=== PATIENT | female | born 1970 ===

== ENCOUNTER 2023-10-11 11:15 | Inpatient (IN) | payer OTHER ==
[~2023-10-11] VITALS: Ht 157.5 cm; Wt 58.5 kg
[2023-10-11] MEDS ORDERED: ZOLOFT100 MG PO (13:34)
[2023-10-11] MEDS ORDERED: WELLBUTRIN XL300 MG PO (13:36)
[2023-10-11] MEDS ORDERED: AMBIEN10 MG PO (13:38)
[2023-10-11] MEDS ORDERED: CLONAZEPAM0.5 MG PO (13:38)
[2023-10-11] MEDS ORDERED: BIOTIN5000 MCG PO (13:40)
[2023-10-11] MEDS ORDERED: VITAMIN D-40010 MCG PO (13:40)
[2023-10-11] MEDS ORDERED: CALCIUM500 M1 (13:40)
[2023-10-14] MEDS ORDERED: CEFOXITIN SODIUM 2,000 MG VIAL IV ONE ×3 (11:55→16:30)
[2023-10-14] MEDS ORDERED: THROMBIN,HU/FIBRINOGEN/CALCIUM 10 ML SYRINGE TOP ONE ×2 (14:17→16:30)
[2023-10-14] MEDS ORDERED: METRONIDAZOLE/SODIUM CHLORIDE 500 MG/100 ML PIGGYBACK IV ONE ×2 (14:47→16:30)
[2023-10-14] MEDS ORDERED: ONDANSETRON HCL 2 MG/ML VIAL IV PRN (15:30)
[2023-10-14] MEDS ORDERED: RINGERS SOLUTION,LACTATED 1,000 ML IV SCH (15:30)
[2023-10-14] MEDS ORDERED: MORPHINE SULFATE 4 MG/ML CARTRIDGE IV PRN (15:45)
[2023-10-14] MEDS ORDERED: SIMETHICONE 125 MG CAPSULE PO SCH (17:00)
[2023-10-14] MEDS ORDERED: CEFOXITIN SODIUM 2,000 MG VIAL IV SCH (17:00)
[2023-10-14] MEDS ORDERED: KETOROLAC TROMETHAMINE 30 MG VIAL IV SCH (17:00)
[2023-10-14] MEDS ORDERED: KETOROLAC TROMETHAMINE 30 MG VIAL ONE (17:07)
[2023-10-14 20:12] LABS: HEMATOCRIT 36.1 % (36.0-45.00); HEMOGLOBIN 11.9 g/dL (12.0-15.00); MEAN CELL VOLUME 84.9 fL (80.00-100.00); PLATELET COUNT 333 K/uL (150-450); RED BLOOD COUNT 4.26 M/uL (4.00-6.00); RED CELL DISTRIBUTION WIDTH 13.9 % (11.5-14.5)
[2023-10-14 20:39] LABS: CALCIUM 9.8 mg/dL (8.5-10.1); CREATININE SERUM 0.94 mg/dL (0.55-1.02); GFR 62.05; POTASSIUM 4.26 mEq/L (3.5-5.1)
[2023-10-14] MEDS ORDERED: FAMOTIDINE/PF 20 MG/2 ML VIAL IV SCH (21:00)
[2023-10-14] MEDS ORDERED: DOCUSATE SODIUM 100MG CAP PO SCH (21:00)
[2023-10-15 06:23] LABS: HEMATOCRIT 31.3 % (36.0-45.00); HEMOGLOBIN 10.8 g/dL (12.0-15.00); MEAN CELL VOLUME 85.3 fL (80.00-100.00); MEAN CORPUSCULAR HEMOGLOBIN 29.3 pg (27.00-32.0); MEAN CORPUSCULAR HGB CONC 34.4 g/dl (32.0-36.0); PLATELET COUNT 310 K/uL (150-450); RED BLOOD COUNT 3.67 M/uL (4.00-6.00); RED CELL DISTRIBUTION WIDTH 13.4 % (11.5-14.5)
[2023-10-15 07:04] LABS: CALCIUM 9.7 mg/dL (8.5-10.1); CREATININE SERUM 1.14 mg/dL (0.55-1.02); GFR 49.67; POTASSIUM 4.25 mEq/L (3.5-5.1)
[2023-10-15] MEDS ORDERED: ENOXAPARIN SODIUM 40 MG/0.4 ML SYRINGE SUBCUTANEO SCH (09:00)
[2023-10-15] MEDS ORDERED: OxyCODONE HCL/APAP UD (PERCOCET) PO PRN (09:30)
[2023-10-15] MEDS ORDERED: 0.9 % SODIUM CHLORIDE 1,000 ML IV SCH (14:45)
[2023-10-15 16:04] LABS: CALCIUM 9.3 mg/dL (8.5-10.1); CREATININE SERUM 0.88 mg/dL (0.55-1.02); GFR 66.96; POTASSIUM 3.35 mEq/L (3.5-5.1)
[2023-10-15] MEDS ORDERED: POTASSIUM CHLORIDE 8 MEQ TABLET PO STA (19:19)
[2023-10-15] MEDS ORDERED: HYOSCYAMINE SULFATE 0.125 MG TAB.SUBL SL STA (19:20)
[2023-10-15] MEDS ORDERED: CLONAZEPAM 0.5 MG TABLET PO SCH (21:00)
[2023-10-15] MEDS ORDERED: SERTRALINE HCL 100 MG TABLET PO SCH (21:00)
[2023-10-16 01:28] LABS: CALCIUM 10.1 mg/dL (8.5-10.1); CREATININE SERUM 0.74 mg/dL (0.55-1.02); GFR 81.78; POTASSIUM 4.52 mEq/L (3.5-5.1)
[2023-10-16] MEDS ORDERED: BUPROPION HCL 150 MG TABLET.SA PO SCH (09:00)
[2023-10-16] MEDS ORDERED: HYOSCYAMINE SULFATE 0.125 MG TAB.SUBL SL PRN (09:00)
[2023-10-16] MEDS ORDERED: DEXTROSE 5 % IN WATER 500 ML IV SCH (10:45)
== END 2023-10-16 13:18 | disposition home or self-care (01) | DRG 742 ==
LOC: OB/GYN 10-14 09:20 → O/R 10-14 09:20 → SURH 10-14 11:15 → OB/GYN 10-14 16:58
PROVIDERS: Obstetrics & Gynecology; Surgery; ADMIT Obstetrics & Gynecology Gynecologic Oncology; ATTEND Obstetrics & Gynecology Gynecologic Oncology
PROC: 0UT20ZZ Resection of Bilateral Ovaries, Open Approach (ICD-10-PCS; 2023-10-14)
PROC: 0DBW0ZZ Excision of Peritoneum, Open Approach (ICD-10-PCS; 2023-10-14)
PROC: 07BC0ZZ Excision of Pelvis Lymphatic, Open Approach (ICD-10-PCS; 2023-10-14)
PROC: 0DBU0ZZ Excision of Omentum, Open Approach (ICD-10-PCS; 2023-10-14)
PROC: 0DNW0ZZ Release Peritoneum, Open Approach (ICD-10-PCS; 2023-10-14)
PROC: 0DNE0ZZ Release Large Intestine, Open Approach (ICD-10-PCS; 2023-10-14)
PROC: 0DTJ0ZZ Resection of Appendix, Open Approach (ICD-10-PCS; 2023-10-14)
PROC: 0UT90ZZ Resection of Uterus, Open Approach (ICD-10-PCS; principal; 2023-10-14 15:00)
PROC: 0UT70ZZ Resection of Bilateral Fallopian Tubes, Open Approach (ICD-10-PCS; 2023-10-14 15:00)
DX: N85.01 Benign endometrial hyperplasia (principal); D62 Acute posthemorrhagic anemia; Z20.822 Contact with and (suspected) exposure to COVID-19; N73.6 Female pelvic peritoneal adhesions (postinfective)